=== PATIENT | female | born 1995 | race Caucasian/White ===

== ENCOUNTER 2019-09-13 07:36 | Outpatient (CLI) | payer OTHER ==
--- NOTE | 2019-09-13 10:26 | MRI ---
RIGHT SHOULDER MRI WITHOUT IV CONTRAST: Date: 09/13/19 HISTORY: Right shoulder pain for several years without associated injury. FINDINGS: Multiplanar, multisequence MRI examination of the right shoulder is performed. AC joint region appear s unremarkable. No evidence for a rotator cuff tear. Rotator cuff muscles are within normal limits of signal and volume. Visualized labrum is unremarkable. No abnormal marrow signal or acute osteochondr al defect. IMPRESSION: Unremarkable right shoulder MRI. No evidence for acute internal derangement. POS: [facility]
== END 2019-09-13 07:37 | disposition home or self-care (01) ==
LOC: TBSIIMAG 07:36
PROVIDERS: ATTEND Orthopaedic Surgery
DX: M25.511 Pain in right shoulder (principal)

== ENCOUNTER 2019-09-30 07:44 | Outpatient (CLI) | payer OTHER ==
--- NOTE | 2019-09-30 12:25 | MRI ---
MRI CHEST WITHOUT CONTRAST: Date: 09/30/19 INDICATINO: Pain in the right sternoclavicular joint for past 2 years with slight prominence of the right sternoc lavicular joint when compared to the left. FINDINGS: When comparing the right and left stenoclavicular joints, there is slight hypertrophy of the right SC joint greater than the left. No large joint effusion is evident. No visible fracture line is seen in volving the clavicular head. The visualized anterior and posterior joint capsule and sternoclavicular ligaments appear intact. The underlying vasculature appears within normal limits. The visualized man ubrium appears within normal limits. No definite lymphadenopathy is noted. 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 Ligamentous structure s appear intact. No visible fracture line is noted. POS: [facility]
== END 2019-09-30 07:45 | disposition home or self-care (01) ==
LOC: BICMRI 07:44
PROVIDERS: ATTEND Orthopaedic Surgery
DX: M25.511 Pain in right shoulder (principal); M89.311 Hypertrophy of bone, right shoulder
CPT/HCPCS: 71550

== ENCOUNTER 2020-03-25 10:57 | Outpatient (CLI) | payer OTHER ==
[2020-03-25] MEDS ORDERED: methylPREDNISolone Acetate 40 mg/ml Vial I-ARTICULR SCH (11:30)
--- NOTE | 2020-03-25 17:05 | CT ---
PROCEDURE: CT Fluoroscopic Needle Guidance PROVIDED CLINICAL HISTORY: Right sternoclavicular joint pain which has been persistent without relief. COMPARISON: None TECHNIQUE: After informed consent was obtained, patient was placed on the CT scan table in the supine position. Limited noncontrasted CT scan was obtained to the level of the sternoclavicular joints with grid localizer in place. An area overlying the right sternoclavicular joint was marked and then meticulous ly prepped and draped in usual sterile fashion. Skin and subcutaneous tissues were infiltrated with buffered 1% lidocaine for local anesthesia. A 25- gauge needle was advanced into the sternoclavicular joint. Approximately 1 mL of a mixture consisting of 3 mL of 1% lidocaine and 2 mL Depo-Medrol (80 mg) was injected into the right sternocla vicular joint. The needle was removed, hemostasis was achieved with direct pressure. The patient briefly perform maneuvers originally resulting in significant pain at this joint, the pat shannan noted improvement after steroid injection of the right sternoclavicular joint. Patient was briefly monitoring the radiology department. Dry sterile dressing was placed at puncture site. Patien t tolerated well and without immediate complication and was discharged in stable condition. IMPRESSION: 1. Technically successful CT-guided steroid injection right sternoclavicular joint with improvement i n patient's pain. 2. Sclerotic lesion within the right clavicular head with suggestion of small lucency at the inferior aspect of this area of sclerosis. Findings could potentially represent a small osteoid osteoma measuring 19 mm x 13 mm. 3. Findings were discussed with Dr. De Leon on 03/25/2020. Transcribed Date/Time: 03/25/2020 5:36 PM
== END 2020-03-25 10:58 | disposition home or self-care (01) ==
LOC: RAD 10:57
PROVIDERS: ATTEND Orthopaedic Surgery
DX: M25.511 Pain in right shoulder (principal); M89.9 Disorder of bone, unspecified
CPT/HCPCS: 76380; 77002; J2960